=== PATIENT | male | born 1970 | race Caucasian/White ===

== ENCOUNTER 2022-03-22 08:00 | Outpatient (RCR) | payer BC, SELFPAY | END 2023-02-15 11:18 | disposition home or self-care (01) | PROVIDERS: PCP Family Medicine; Visit Provider Family Medicine | DX: I89.0 Lymphedema, not elsewhere classified (principal); Z51.89 Encounter for other specified aftercare | CPT/HCPCS: 97140 ==

== ENCOUNTER 2022-11-11 14:02 | Outpatient (CLI) | payer BC, SELFPAY | END 2022-11-11 14:03 | disposition home or self-care (01) | PROVIDERS: PCP Family Medicine; Visit Provider Family Medicine | DX: R07.89 Other chest pain (principal) | CPT/HCPCS: 80048; 80061 ==

== ENCOUNTER 2023-03-17 09:50 | Outpatient (CLI) | payer BC, SELFPAY | END 2023-03-17 09:51 | disposition home or self-care (01) | PROVIDERS: PCP Family Medicine; Visit Provider Family Medicine | DX: E78.2 Mixed hyperlipidemia (principal); I10 Essential (primary) hypertension | CPT/HCPCS: 80053 ==

== ENCOUNTER 2023-12-26 09:10 | Outpatient (CLI) | payer BC, SELFPAY | END 2023-12-26 09:11 | disposition home or self-care (01) | PROVIDERS: PCP Family Medicine; Visit Provider Family Medicine | DX: E78.2 Mixed hyperlipidemia (principal); I10 Essential (primary) hypertension; Z12.5 Encounter for screening for malignant neoplasm of prostate | CPT/HCPCS: 80048; 80061; 84460; 85025; G0103 ==

== ENCOUNTER 2024-03-24 17:12 | Emergency (ER) | payer BC, SELFPAY ==
[2024-03-24 18:00] VITALS: BP 146/97; PULSE 73; RESP 16; TEMP 36.8; O2SAT 97; BMI 44.6
--- NOTE | 2024-03-24 18:35 | CRLHL7_ITS ---
For Patients: As a result of the Century Cures Act, medical imaging exams and procedure reports are released immediately into your electronic medical record. You may view this report before your referring provider. If you have questions, please contact your health care provider. INDICATION: Headache. COMPARISON: None. TECHNIQUE: CT of the head without IV contrast. Coronal and sagittal reconstructions. FINDINGS: No intracranial hemorrhage, mass effect, or evidence of acute infarct. No midline shift. No abnormal extra-axial fluid collections. Normal caliber ventricular system. Orbits and extraocular muscles are symmetric. The visualized paranasal sinuses and mastoid air cells are clear. Soft tissues are unremarkable. No acute fracture identified. IMPRESSION: No acute intracranial findings. Please note that all CT scans at this facility use dose modulation, iterative reconstruction, and/or weight-based dosing when appropriate to reduce radiation dose to as low as reasonably achievable. Dictated by Teagan Melara MD @ 03/24/2024 7:13:33 PM (Electronically Signed)
--- NOTE | 2024-03-24 18:40 | ED.GENADULT ---
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 He denies focal neurologic changes but he came home Monday and felt a little dizzy did not feel well. He felt better briefly but then today had similar symptoms he reports that feels like ?a spike sticking through his head from his frontal area to his parietal area, primarily on the left side. ?Patient denies fever, chills, chest pain, breathing problem. He has had a cardiac stent x2 and he has done well with that it has been followed up on. He is on clopidogrel atorvastatin metoprolol nitroglycerin as needed a statin. He denies having a headache history. He has not had allergies or sinus infections in the past. He does not feel feverish. He has been eating and drinking normally Related Data Home Medications ?Medication ?Instructions ?Recorded ?Confirmed isosorbide mononitrate 30 mg 30 mg PO DAILY 02/12/24 03/24/24 tablet,extended release 24 hr aspirin 81 mg tablet,delayed 81 mg PO QDAY 02/13/24 03/24/24 release (Adult Low Dose Aspirin) clopidogrel 75 mg tablet 75 mg PO DAILY 03/24/24 03/24/24 Previous Rx's ?Medication ?Instructions ?Recorded atorvastatin 40 mg tablet 80 mg (2 x 40 mg) PO QDAY #180 tabs 01/19/23 lisinopril 40 mg tablet 40 mg PO QDAY #90 tabs 04/24/23 furosemide 40 mg tablet 40 mg PO DAILY #90 tabs 10/20/23 metoprolol succinate 50 mg 50 mg PO QDAY #90 tabs 12/27/23 tablet,extended release 24 hr (Toprol XL) nitroglycerin 0.4 mg sublingual 0.4 mg sublingual Q5M PRN chest 12/27/23 tablet pain #20 tabs Allergies Allergy/AdvReac Type Severity Reaction Status Date / Time No Known Drug Allergies Allergy Verified 03/24/24 18:04 Review of Systems Status of ROS: Reports: 6 or more systems reviewed and unremarkable except as noted in History and below [facility] Medical History ASCVD (arteriosclerotic cardiovascular disease) ?I25.10 - Atherosclerotic heart disease of [place] coronary artery without angina pectoris (ICD-10) Mixed hyperlipidemia ?E78.2 - Mixed hyperlipidemia (ICD-10) Primary hypertension ?I10 - Essential (primary) hypertension (ICD-10) Osteoarthritis of right shoulder ?M19.011 - Primary osteoarthritis, right shoulder (ICD-10) History of exertional chest pain ?Z87.898 - Personal history of other specified conditions (ICD-10) Edema of both lower extremities ?R60.0 - Localized edema (ICD-10) Surgical History History of coronary angioplasty with insertion of stent (12/06/22) ?Z95.5 - Presence of coronary angioplasty implant and graft (ICD-10) History of vasectomy (06/2003) ?Z98.52 - Vasectomy status (ICD-10) History of appendectomy (09/2014) ?Z90.49 - Acquired absence of other specified parts of digestive tract (ICD-10) Family History Father Heart disease Myocardial infarction Uncle Heart disease Maternal Grandmother Stroke Diabetes Social History Narrative: , 7 children, truck driver flatbed, Non smoker, social EtOH Smoking Status: Never smoker Little interest or pleasure in doing things: not at all Feeling down, depressed, or hopeless: not at all Exam Narrative: Exam Narrative: Objective: Patient's vital signs show slightly elevated blood pressure, he is alert orient x3 very pleasant, noncyanotic Head no facial asymmetry, no scleral icterus, mouth is clear, patient smiles normally Neck is supple Chest is clear Heart rhythm regular with out murmur Abdomen nontender no masses no peritonitis Extremities trace edema of the ankles and full range of motion of the arms and legs, no weakness noted no paresthesias or dysesthesia. Const: Vital Signs, click to edit/add: Vital Signs - 24 hr 03/24/24 18:00 Temperature 98.2 F Pulse Rate [Pulse Oximeter] 73 Respiratory Rate 16 Blood Pressure [Ri ght Upper Arm] 146/97 H Pulse Oximetry 97 Oxygen Delivery Me thod Room Air Course Vital Signs Vital signs: Initial Vital Signs Temperature 98.2 F 03/24/24 18:00 Temperature Source Temporal Artery Scan 03/24/24 18:00 Pulse Rate 73 03/24/24 18:00 Respiratory Rate 16 03/24/24 18:00 Blood Pressure 146/97 H 03/24/24 18:00 Blood Pressure Mean 113 H 03/24/24 18:00 Blood Pressure Position Sitting 03/24/24 18:00 Pulse Oximetry 97 03/24/24 18:00 Oxygen Delivery Method Room Air 03/24/24 18:00 Vital Signs Temperature 98.2 F 03/24/24 18:00 Pulse Rate 73 03/24/24 18:00 Respiratory Rate 16 03/24/24 18:00 Blood Pressure 146/97 H 03/24/24 18:00 Pulse Oximetry 97 03/24/24 18:00 Oxygen Delivery Method Room Air 03/24/24 18:00 Temperature 98.2 F 03/24/24 18:00 Pulse Rate 73 03/24/24 18:00 Respiratory Rate 16 03/24/24 18:00 Blood Pressure 146/97 H 03/24/24 18:00 Pulse Oximetry 97 03/24/24 18:00 Oxygen Delivery Method Room Air 03/24/24 18:00 Medications Administered Medications: Discontinued Medications Generic Name Dose Route Start Last Admin Trade Name Freq PRN Reason Stop Dose Admin Diphenhydramine HCl 25 mg 03/24/24 18:34 03/24/24 19:39 Diphenhydramine 50 Mg/Ml Inj IVP 03/24/24 18:35 25 mg ONCE ONE Administration Sodium Chloride 1,000 mls @ 6,000 mls/hr 03/24/24 18:45 03/24/24 19:38 0.9 % Sodium Chloride 1000 Ml IV 03/24/24 18:54 6,000 mls/hr .Q10M TAMMY Administration Metoclopramide HCl 10 mg/ 102 mls @ 306 mls/hr 03/24/24 18:34 03/24/24 19:39 Sodium Chloride IV 03/24/24 18:35 306 mls/hr ONCE ONE Administration Ketorolac Tromethamine 15 mg 03/24/24 18:36 03/24/24 19:38 Ketorolac 15 Mg/Ml Inj IVP 03/24/24 18:37 15 mg ONCE ONE Administration Medical Decision Making MDM Narrative Medical decision making narrative: 54-year-old white male with a occasional intermittent headache type process from his left frontal area through his left parietal area. No history of migraines. No history of significant neurologic compromise. 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 To see if it will help with this discomfort. I think also be reasonable to get a head CT scan to exclude sinusitis or tumor or other intracranial pathology. Will check electrolytes and labs. Disposition pending findings. Will write him a note that he can be off work for the next 3 days until follow-up with primary care. Addendum 8:00 p.m.: Patient's head CT was read by radiology is negative no evidence of sinusitis intracranial pathology. He feels better, I do think he should be off work for few days, recheck with primary care at that time. His CBC looks unremarkable other his platelets are little bit low. His electrolyte profile is pending at this point but I think he can go home at this time. No redness he should be off work for period of time and then recheck with primary care doctor as described above. Consideration would be for MRI scanning or further intervention should he continue to have symptoms. Lab Data Labs: Lab Results 03/24/24 Range/Units 19:37 WBC 8.19 (4.50-11.00) K/uL RBC 4.77 (4.30-5.90) m/uL Hgb 14.1 (13.5-17.5) gm/dL Hct 43.4 (37.0-53.0) % MCV 91 (80-100) fL MCH 30 (26-34) pg MCHC 33 (32-36) gm/dL RDW Coeff of Gwen 12.9 (11.5-15.5) % Plt Count 126 L (140-440) K/uL Neut % (Auto) 65.6 (42.0-72.0) % Lymph % (Auto) 23.2 (20-44) % Morrill % (Auto) 8.9 (0.0-11.0) % Eos % (Auto) 2.0 (0.0-7.0) % Baso % (Auto) 0.2 (0.0-3.0) % Neut # (Auto) 5.37 (1.7-7.0) K/uL Lymph # (Auto) 1.90 (0.90-2.90) K/uL Morrill # (Auto) 0.70 (0.00-0.90) K/UL Eos # (Auto) 0.16 (0.00-0.50) K/uL Baso # (Auto) 0.02 (0.00-0.30) K/uL Abs Immat Gran (auto) 0.01 (0.00-0.30) K/uL Imm/Tot Granulo (auto) 0.1 % Discharge Plan Discharge Clinical Impression: Headache Patient Disposition: Home w/ Parent or Adult Condition: Stable Additional Instructions: Recommend off work for 3 days, recheck with her primary care doctor at that time. If she continue to have symptoms consider an MRI scan of your head. Drink adequate fluids. Continue home medications. Activity Level: Light activity Discharge Diet: Regular Prescriptions: No Action metoprolol succinate [Toprol XL] 50 mg tablet extended release 24 hr 50 mg PO QDAY Qty: 90 1RF nitroglycerin 0.4 mg tablet, sublingual 0.4 mg sublingual Q5M PRN (Reason: chest pain) Qty: 20 0RF Rx Instructions: do not exceed 3 doses per episode isosorbide mononitrate 30 mg tablet extended release 24 hr 30 mg PO DAILY aspirin [Adult Low Dose Aspirin] 81 mg tablet,delayed release (DR/EC) 81 mg PO QDAY clopidogrel 75 mg tablet 75 mg PO DAILY atorvastatin 40 mg tablet 80 mg PO QDAY Qty: 180 3RF lisinopril 40 mg tablet 40 mg PO QDAY Qty: 90 3RF Patient Comments: TAKE 1 TABLET BY MOUTH DAILY furosemide 40 mg tablet 40 mg PO DAILY Qty: 90 0RF Follow Up/Referrals: Ramu Baca MD [Primary Care Provider] - Stand Alone Forms: [employer] Info Instructions
[2024-03-24] MEDS: KETOROLAC 15 MG/ML inj IVP (19:38)
[2024-03-24] MEDS: 0.9 % SODIUM CHLORIDE 1000 ml 1,000 ML 6000 ML IV (19:38)
[2024-03-24] MEDS: diphenhydrAMINE 50 MG/ML inj 25 MG IVP (19:39)
[2024-03-24] MEDS: METOCLOPRAMIDE HCL 10 MG in 0.9 % SODIUM CHLORIDE 100 ml 100 ML 306 MG IV (19:39)
[2024-03-24 19:41] LABS: Basophils Absolute Auto 0.02 K/uL (0.00-0.30); Basophils Percent Auto 0.2 % (0.0-3.0); Eosinophils Absolute Auto 0.16 K/uL (0.00-0.50); Hematocrit 43.4 % (37.0-53.0); Hemoglobin* 14.1 gm/dL (13.5-17.5); Immature Granulocytes Abs Auto 0.01 K/uL (0.00-0.30); Immature Granulocytes Pct Auto 0.1 %; Lymphocytes Percent Auto 23.2 % (20-44); Mean Corpuscular HGB Conc 33 gm/dL (32-36); Mean Corpuscular Hemoglobin 30 pg (26-34); Mean Corpuscular Volume 91 fL (80-100); Monocytes Percent Auto 8.9 % (0.0-11.0); Neutrophils Absolute Auto 5.37 K/uL (1.7-7.0); Neutrophils Percent Auto 65.6 % (42.0-72.0); Platelet Count* 126 K/uL (140-440); RDW Coefficient of Variation % 12.9 % (11.5-15.5); Red Blood Count 4.77 m/uL (4.30-5.90); White Blood Count* 8.19 K/uL (4.50-11.00)
[2024-03-24 19:48] LABS: Slide Review Reflex No
[2024-03-24 20:00] VITALS: BP 157/100; PULSE 75; RESP 16; O2SAT 98
--- NOTE | 2024-03-24 20:15 | PC.NURSE ---
pt states his headache has improved, rates pain 5/10.Pt states when he got up to go to the bathroom headache and lightheadedness increased.
== END 2024-03-24 20:32 | disposition home or self-care (01) ==
PROVIDERS: Emergency Provider Family Medicine; PCP Family Medicine
DX: R51.9 Headache, unspecified (principal)
CPT/HCPCS: 36415; 70450; 80048; 85025; 86140; 96374; 96375; 99284; J1200; J1885; J2765; J7030

== ENCOUNTER 2024-03-28 13:19 | Emergency (ER) | payer BC, SELFPAY ==
[2024-03-28 13:28] VITALS: BP 132/85; PULSE 93; RESP 16; TEMP 36.6; O2SAT 98
[2024-03-28 15:36] VITALS: BP 149/84; PULSE 69; RESP 16; TEMP 36.4; O2SAT 95
--- OUTSIDE RECORDS SUMMARY | 2024-03-28 16:30 | XMS_ITS | Clinical Summary ---
Author Organization [employer] [facility] Address [place], [place] [address] Care Team Providers Care Tree Planter Name Role Phone Ramu Baca MD Primary Care Provider + Allergies No known active allergies Medications Medication Sig Dispensed Refills Start Date End Date Status furosemide (LASIX) 40 mg tablet Take 40 mg by mouth once daily. 06/15/2022 Active lisinopriL (PRINIVIL; ZESTRIL) 40 mg tablet Take 40 mg by mouth once daily. 09/28/2022 Active aspirin (ECOTRIN) 81 mg enteric coated tablet Take 1 Tablet (81 mg) by mouth once daily. 0 12/05/2022 Active nitroglycerin (NITROSTAT) 0.[address] 0.4 mg under the tongue every 5 minutes if needed for Chest Pain. Active atorvastatin (LIPITOR) 80 mg tabletIndications:Matthew cardial infarction involving left anterior descending (LAD) coronary artery, unspecified TN type (HC) Take 1 Tablet (80 mg) by mouth once daily. 90 Tablet 3 12/07/2022 Active metoprolol succinate (TOPROL XL) 50 mg sustained-release tablet Take 50 mg by mouth once daily. 12/27/2023 Active isosorbide mononitrate (IMDUR) 30 mg extended release tablet 24 HourIndications:Unsta ble angina pectoris (HC) Take 1 Tablet (30 mg) by mouth once daily. 90 Tablet 3 02/06/2024 Active Active Problems Problem Noted Date Diagnosed Date TN (myocardial infarction) 12/06/2022 Chest pain 12/05/2022 GERD (gastroesophageal reflux disease) HTN (hypertension) 12/05/2022 Encounters Date Type Department Care Team Description 02/06/2024 7:43 AM CDT - 02/06/2024 4:20 PM CDT Hospital Encounter [facility] [address] [place] [address] Hasmukh Zamora MD Unstable angina pectoris (HC) (Primary Dx); Cardiovascular symptoms Discharge Disposition: Home Self Care 02/06/2024 Travel 01/29/2024 [facility] [place] [address] [place] [address] Vidhya Lee MD instructions needed 01/26/2024 Telephone [facility] [address] [place] [phone] Vidhya Lee MD 01/25/2024 2:30 PM CDT [facility] [address] [place] [address] Vidhya Lee MD from Last 3 Months Immunizations Name Administration Dates Next Due Influenza Virus, Unspecified 07/19/2018(Deferred : Patient Refused) Influenza, IIV4 07/19/2018,05/23/2016 Td (Age >=7 Years) 10/01/2013(Deferred: Patient Refused),09/25/2002 Td, Preservative Free (age > = 7 Years) 10/01/2013 Tdap 10/04/2013 Social History Tobacco Use Types Packs/Day Years Used Date Smoking Tobacco: Never Smokeless Tobacco: Never Tobacco Cessation:Counseling Given: Not Answered Alcohol Use Standard Drinks/Week Comments Not Currently 0 (1 standard drink = 0.6 oz pur e alcohol) Social Connections Answer Date Recorded Frequency of Communication with Friends and Fami ly Not on file 12/05/2022 Sex and Gender Information Value Date Recorded Sex Assigned at Not on file Gender Identity Not on file Sexual Orientation Not on file Obstetrics History Last Filed Vital Signs Vital Sign Reading Time Taken Comments Blood Pressure 131/83 02/06/2024 4:04 PM CDT Pulse 67 02/06/2024 4:04 PM CDT Temperature 36.8 ??C (98.2 ??F) 02/06/2024 4:04 PM CD T Respiratory Rate 16 02/06/2024 4:04 PM CDT Oxygen Saturation 97% 02/06/2024 4:04 PM CDT Inhaled Oxygen Concentration - - Weight 147.1 kg (324 lb 4.8 oz) 02/06/2024 8:14 AM CDT Height 180.3 cm (5' 11) 02/06/2024 8:14 AM CDT Body Mass Index 45.23 02/06/2024 8:14 AM CDT Plan of Treatment Health Maintenance Due Date Last Done Comments Depression screening for age 12+ 1983 HIV for age 15-65 1986 Hepatitis C screening for ag e 18-79 1989 Colonoscopy through age 75 02/12/2016 Zoster (shingles) series for age 50+ (1 of 2) 2021 COVID-19 vaccine series ( - 2022- season) 2023 Tetanus booster 10/05/2023 10/04/2013, 10/01/2013, 09/25/2002 BMI (ht and wt on same day) for age 18+ 12/06/2023 12/05/2022 Influenza for age 50-64 03/31/2024 07/19/20 18, 05/23/2016 Lipids for age 45-75 12/07/2027 12/06/2022 Tdap Completed 10/04/2013 Pneumococcal series for age 6-64 Aged Out No longer eligible b ased on patient's age to complete this topic Procedures Procedure Name Priority Date/Time Associated Diagnosis Comments HCHG ACTIVATED CLOTTING TM CV Timed 02/06/2024 11:50 AM CDT CVL CORONARY ANGIOGRAM POSS PCI Routine 02/06/2024 11:25 AM CDT Cardiovascular symptoms EKG 12 LEAD BASSEM 02/06/2024 8:19 AM CDT CBC W PLT NO DIFF BASSEM 02/06/2024 8:1 6 AM CDT BASIC METABOLIC PANEL BASSEM 02/06/2024 8:16 AM CDT SCAN-OPERATIVE/PROC EDURE REPORT 02/06/2024 12:00 AM CDT LIPID PANEL Early AM 12/06/2022 7:49 AM CDT from Last 3 Months or Most Recently Relevant to Health Maintenance Results * (ABNORMAL) ACTIVATED CLOTTING TIME [id number] ACT (02/06/2024 11:50 AM CDT) ACTIVATED CLOTTING TIME, POCT 224(H) 74 - 125 sec 02/07/2024 7:27 PM CDT [facility] Blood BLOOD SPECIMEN / Unknown 02/06/2024 11:50 AM CDT 02/07/2024 7:27 PM CDT Hasmukh Zamora MD [facility] [address] [place] [address], * CVL CORONARY ANGIOGRAM POSS PCI (02/06/2024 11:25 AM CDT) Anatomical Region Laterality Modality X-Ray Angiograph y, X-Ray Angiography 02/06/2024 11:2 5 AM CDT Narrative Transcriptions Hasmukh Zamora MD - 02/06/2024 12:06 PM CDT [facility] Cardiac Catheterization Report Name: DUDLEY WILL Event Date: 02/06/2024 11:25 [employer] ID #: [id number] Patient Class: Outpatient Diagnostic Physician: Rodolfo ZAMORA [facility] Referring Physician: Ramu Baca Date: 1970 Gender: Male Age: 53 Summary/Conclusions PRESENTATION / INDICATIONS * [place] - Highest CCS Class w/in past 2 wks - Class II VASCULAR ACCESS * Using ultrasound guidance and a percutaneous technique, the right radialartery was accessed. Ultrasound was used to confirm vessel patency,localizing needle into the lumen of the vessel. An image was saved for themedical record. DIAGNOSTIC SUMMARY ? The LMCA is free of significant disease. ? 50% stenosis in the Proximal LAD and patent stents distally ? 60% stenosis in the 1st Diagonal ? The Circumflex is free of significant disease. ? The RCA is free of significant disease. INTERVENTION ? Pressure Wire to Proximal LAD, iFR= 0.96 (revascularization notindicated) RECOMMENDATIONS & PLAN * Medical Rx - Only mild CAD present Consent & [place] Protocol The risks, benefits, and alternatives of the procedure were discussed withthe patient and written informed consent was obtained. [place] protocol was followed. TIME OUT conducted just prior tostarting procedure confirmed patient identity, site/side, procedure,patient position, and availability of correct equipment and implants (ifapplicable). Staff Name Title Rodolfo ZAMORA Diagnostic Marketing Ambassador Ethel Negron Fellow Caity Wilkerson RN Nurse Ellen Fuller RN Nurse Ramona Gruber CVT Scrub Urbano, Toya CVT Monitor Procedures ? Ultrasound Guided Vascular Access ? Coronary Angiogram ? Coronary Fractional Flow Measurement Diagnostic Findings * Left Main Coronary Artery ? The LMCA is free of significant disease. * Left Anterior Descending ? 50% stenosis in the Proximal LAD. ? 60% stenosis in the 1st Diagonal. * Circumflex ? The Circumflex is free of significant disease. * Right Coronary Artery ? The RCA is free of significant disease. Lesion Information Lesion # Vessel Segment Lesion Length Lesion Details 1 Proximal LAD 1st Diagonal Hemodynamics State: Baseline Pressures (mmHg) Site Systolic Diastolic End Diastolic A Wave V Wave Mean AO 113 83 99 Interventional Results * Left Anterior Descending ? Intervention to the Proximal LAD 50% lesion using a Pressure Wire. Interventional Devices Lesion # Vessel Segment Type Name Max Pressure 1 Proximal LAD Pressure Wire Wire Pressure Guide OMNIwire [id number] Procedure Details Estimated Blood Loss: < 30 ml Specimen Collected: None Level of Sedation Achieved: Moderate Procedure Start: 11:25 Procedure End: 11:55 Procedure Time: 30 min Fluoroscopy Time: 8.4 min Cumulative Air Kerma: 621 mGy DAP: 4190 uGy/M2 Contrast: Omnipaque (low-osmolar), 65 ml Physiologic Data Weight: 147.1 kg BSA: 2.59 m2 Vascular Access Time Access Sheath Size 11:27 Right Radial Artery, sheath inserted Complications ? No Complications Medications Ordered and Administered Start Time Stop Time Medication Dose Units Route Ordered By Given By 11:21 O2 2 l per min Nasal cannula Rodolfo Zamora RachelleRN 11:23 Fentanyl 50 mcg IV Rodolfo Zamora Rachelle RN 11:23 Versed 1 mg IV Rodolfo Zamora Rachelle RN 11:25 1% Lidocaine 2.5 ml Subcut Rodolfo Zamora Jaskanwal 11:29 Versed 0.5 mg IV Rodolfo Zamora Rachelle RN 11:29 Fentanyl 25 mcg IV Rodolfo Zamora Rachelle RN 11:34 Heparin 56562 units IV Rodolfo Zamora Rachelle RN I personally monitored the patient?s conscious sedation during theprocedure. Conscious sedation starts with the first sedation medication dose ofFentanyl or Versed and ends when the procedure is completed, the patientis stable for recovery status, and the physician or other qualified healthcare professional providing the sedation ends personal [id number] time with the patient. The medications listed above were verbally ordered by me and read back tome as documented above. Refer to the procedure log report for additional case details. electronically signed on 02/06/2024 12:06:14 PM with status of Final Gigi Zamora MD [facility] [address] [place] [address] (p) [phone](f) Provider Referring CV IMAGING * 12 Lead EKG (02/06/2024 8:19 AM CDT) Interpretation Normal sinus rhythm Normal ECG When compared with ECG of 06-Dec-2022 16:13, No significant change was found BEYOND NOW Ventricular Rate 69 BPM BEYOND NOW Atrial Rate 69 BPM BEYOND NOW P-R Interval 150 ms BEYOND NOW QRS Duration 106 ms BEYOND NOW QT 390 ms BEYOND NOW QTc 417 ms BEYOND NOW P Delanson 8 degrees BEYOND NOW R [place] 7 degrees BEYOND NOW T [place] 23 degrees BEYOND NOW 02/06/2024 8:19 AM CDT 02/07/2024 6:32 PM CDT Narrative BEYOND NOW - 02/07/2024 6:32 PM CDT Test Indication: PRE OP Hasmukh Zamora MD EKG ORD BEYOND NOW [place], [place] * CBC with Platelets no Differential (02/06/2024 8:16 AM CDT) WHITE BLOOD COUNT 6.6 4.5 - 11.0 thou/cu mm 02/06/2024 8:31 AM CDT [facility] RED BLOOD COUNT 4.89 4.30 - 5.90 mil/cu mm 02/06/2024 8:31 AM CDT [facility] HEMOGLOBIN 14.6 13.5 - 17.5 g/dL 02/06/2024 8:31 AM CDT [facility] HEMATOCRIT 44.4 37.0 - 53.0 % 02/06/2024 8:31 AM CDT [facility] MCV 91 80 - 100 fL 02/06/2024 8:31 AM CDT [facility] MCH 29.9 26.0 - 34.0 pg 02/06/2024 8:31 AM CDT [facility] MCHC 32.9 32.0 - 36.0 g/dL 02/06/2024 8:31 AM CDT [facility] RDW 12.7 11.5 - 15.5 % 02/06/2024 8:31 AM CDT [facility] PLATELET COUNT 149 140 - 440 thou/cu mm 02/06/2024 8:31 AM CDT [facility] MPV 10.1 6.5 - 11.0 fL 02/06/2024 8:31 AM CDT [facility] NRBC 0.0 % 02/06/2024 8:31 AM CDT [facility] ABS NRBC 0.0 thou /cu mm 02/06/2024 8:31 AM CDT [facility] Blood BLOOD SPECIMEN / Unknown Non-Lab Venipuncture / Unknown 02/06/2024 8:16 AM CDT 02/06/2024 8:23 AM CDT Narrative [facility] - 02/06/2024 8:31 AM CDT If not done within past 14 days. ??Nurse to release order. Hasmukh Zamora MD HEMATOLOGY [facility] [address] [place] [address], * Basic Metabolic Panel (02/06/2024 8:16 AM CDT) SODIUM 138 136 - 145 mmol/L 02/06/2024 9:11 AM CDT [facility] POTASSIUM 4.3 3.5 - 5.1 mmol/L 02/06/2024 9:11 AM CDT [facility] CHLORIDE 104 98 - 107 mmol/L 02/06/2024 9:11 AM CDT [facility] CO2,TOTAL 28 22 - 29 mmol/L 02/06/2024 9:11 AM CDT [facility] ANION GAP 6 5 - 18 02/06/2024 9:11 AM CDT [facility] GLUCOSE 97 70 - 99 mg/dL 02/06/2024 9:11 AM CDT [facility] CALCIUM 8.9 8.6 - 10.0 mg/dL 02/06/2024 9:11 AM CDT [facility] BUN 13 6 - 20 mg/dL 02/06/2024 9:11 AM T [facility] CREATININE 0.95 0.70 - 1.20 mg/dL 02/06/2024 9:11 AM T [facility] BUN/CREAT RATIO 14 10 - 20 9:11 AM T [facility] eGFR >90 >90 mL/min/1.7 3m2 02/06/2024 9:11 AM CDT [facility] Comment:As of 2021, eG FR is calculated by the CKD-EPI creatinine equation without race adjustment. ??eGFR can be influenced by muscle mass, exercise, and diet. ??The reported eGFR is an estimation only and is only applicable if the renal function is stable. Blood BLOOD SPECIMEN / Unknown Non-Lab Venipuncture / Unknown 02/06/2024 8:16 AM CDT 02/06/2024 8:23 AM CDT Hasmukh Zamora MD [facility] [address] [place] [address], * SCAN-OPERATIVE/PROCEDURE REPORT (02/06/2024 12:00 AM CDT) Narrative 02/06/2024 12:00 AM CDT Ordered by an unspecified provider. Other Clinical Staff OTHER * (ABNORMAL) Lipid Panel AM (12/06/2022 7:49 AM CDT) CHOLESTEROL,TOTAL 133 mg/dL 023 9:02 AM T [facility] Comment: Cholesterol, Total Reference Ranges Desirable <200 mg/dL Borderline 200-239 mg/dL High >=240 mg/dL TRIGLYCERIDES 99 <150 mg/dL 12/06/2022 9:02 AM CDT [facility] HDL CHOLESTEROL 31(L) >40 mg/dL 9:02 AM CDT [facility] NON-HDL CHOLESTEROL 102 <145 mg/dl 12/06/2022 9:02 AM CDT [facility] CHOL/HDL RATIO 4.29 <4.50 12/06/2022 9:02 AM CDT [facility] LDL CHOLESTEROL 82 <=130 mg/dL 12/06/2022 9:02 AM CDT [facility] VLDL CHOLESTEROL 20 <=30 mg/dL 12/06/2022 9:02 AM CDT [facility] PROVIDER ORDERED STATUS RANDOM 12/06/2022 9:02 AM T [facility] Blood BLOOD SPECIMEN / Unknown Butterfly / Unknown 12/06/2022 7:49 AM CDT 12/06/2022 8:09 AM CDT Alida Johnson MD CHEMISTRY [facility] [address] [place] [address] [address] [place] [address], from Last 3 Months or Most Recently Relevant to Health Maintenance Advance Directives * Full Code (Latest Code Status on File) Date Activated Date Inactivated Comments 02/06/2024 12:00 PM 02/06/2024 6:33 PM Question Answer Comments Code Status Discussion: Unable to Assess Preferences, Provider to review later * Full Code Date Activated Date Inactivated Comments 12/05/2022 4:10 PM 12/07/2022 7:16 PM Question Answer Comments Code Status Discussion: Reviewed Preferences Care Teams Tree Planter Relationship Specialty Start Date End Date Ramu Baca MD [address] [place] [address] PCP - General Family Practice 12/05/22
--- NOTE | 2024-03-28 16:47 | W.ED.CHARTNO ---
ED Chart Note Chart Note Details Date: 03/28/24 Details: Left waiting room without being seen by provider
== END 2024-03-28 16:31 | disposition left against medical advice (07) ==
PROVIDERS: Emergency Provider Student in an Organized Health Care Education/Training Program; PCP Family Medicine
DX: Z53.21 Procedure and treatment not carried out due to patient leaving prior to being seen by health care provider (principal)

== ENCOUNTER 2024-04-05 07:04 | Outpatient (CLI) | payer BC, SELFPAY ==
--- OUTSIDE RECORDS SUMMARY | 2024-04-05 07:06 | XMS_ITS | Clinical Summary ---
Author Organization [employer] Address [place], [place] [address] Care Team Providers Care Wind Turbine Machinist Name Role Phone Ramu Baca MD Primary [...] left anterior descending (LAD) coronary artery, unspecified DC type (HC) Take 1 Tablet (80 mg) [...] Active Problems Problem Noted Date Diagnosed Date DC (myocardial infarction) 12/06/2022 Chest pain 12/05/2022 GERD (gastroesophageal reflux disease) HTN (hypertension) 12/05/2022 Encounters Date Type Department Care Team Description 02/06/2024 7:43 AM CDT - 02/06/2024 4:20 PM CDT Hospital Encounter [facility] [address] [place] [address] Hasmukh Zamora MD Unstable angina pectoris (HC) (Primary Dx); Cardiovascular symptoms Discharge Disposition: Home Self Care 02/06/2024 Travel 01/29/2024 [facility] [address] [place] [address] Vidhya Lee MD instructions needed 01/26/2024 Telephone [facility] [address] [place] [phone] Vidhya Lee MD 01/25/2024 2:30 PM CDT Office Visit [facility] [address] [place] [address] Vidhya Lee MD from Last 3 Months [...] for age 50+ (1 of 2) 2021 Tetanus booster 10/05/2023 10/04/2013, 10/01/2013, 09/25/2002 BMI (ht and wt on same day) for age 18+ 12/06/2023 12/05/2022 COVID-19 vaccine series ( season) 2024 Influenza for age 50-64 03/31/2024 07/19/20 18, [...] Maintenance Results * (ABNORMAL) ACTIVATED CLOTTING TIME [id number] ACT (02/06/2024 11:50 AM CDT) ACTIVATED CLOTTING TIME, POCT 224(H) 74 - 125 sec 02/07/2024 7:27 PM CDT [facility] Blood BLOOD SPECIMEN / Unknown 02/06/2024 11:50 AM CDT 02/07/2024 7:27 PM CDT Hasmukh Zamora MD [facility] [address] [place] [address], * CVL CORONARY ANGIOGRAM POSS PCI (02/06/2024 11:25 AM CDT) Anatomical Region Laterality Modality X-Ray Angiograph y, X-Ray Angiography 02/06/2024 11:2 5 AM CDT Narrative Transcriptions Hasmukh Zamora MD - 02/06/2024 12:06 PM CDT [facility] Cardiac Catheterization Report Name: DUDLEY WILL Event Date: 02/06/2024 11:25 [employer] ID #: [id number] Patient Class: Outpatient Diagnostic Physician: Rodolfo ZAMORA [facility] Referring Physician: Ramu Baca Date: 1970 Gender: [...] - Only mild CAD present Consent & [place] Protocol The risks, benefits, and alternatives of the procedure were discussed withthe patient and written informed consent was obtained. [place] protocol was followed. TIME OUT conducted just prior tostarting procedure confirmed patient identity, site/side, procedure,patient position, and availability of correct equipment and implants (ifapplicable). Staff Name Title Rodolfo ZAMORA Diagnostic Plant Operations Manager Ethel Negron Fellow Caity Wilkerson RN Nurse [...] LAD Pressure Wire Wire Pressure Guide OMNIwire [id number] Procedure Details Estimated Blood Loss: < 30 [...] IV Rodolfo Zamora Rachelle RN 11:34 Heparin 89761 units IV Rodolfo Zamora Rachelle RN I personally monitored the patient?s conscious sedation during theprocedure. Conscious sedation starts with the first sedation medication dose ofFentanyl or Versed and ends when the procedure is completed, the patientis stable for recovery status, and the physician or other qualified healthcare professional providing the sedation ends personal [id number] time with the patient. The medications listed above were verbally ordered by me and read back tome as documented above. Refer to the procedure log report for additional case details. electronically signed on 02/06/2024 12:06:14 PM with status of Final Gigi Zamora MD [facility] [address] [place] [address] (p) [phone](f) Provider Referring CV IMAGING * 12 Lead [...] NOW QTc 417 ms BEYOND NOW P Isabella 8 degrees BEYOND NOW R Isabella 7 degrees BEYOND NOW T Isabella 23 degrees BEYOND NOW 02/06/2024 8:19 AM CDT 02/07/2024 6:32 PM CDT Narrative BEYOND NOW - 02/07/2024 6:32 PM CDT Test Indication: PRE OP Hasmukh Zamora MD EKG ORD BEYOND NOW [place], [place] * CBC with Platelets no Differential (02/06/2024 8:16 AM CDT) WHITE BLOOD COUNT 6.6 4.5 - 11.0 thou/cu mm 02/06/2024 8:31 AM CDT [facility] RED BLOOD COUNT 4.89 4.30 - 5.90 mil/cu mm 02/06/2024 8:31 AM CDT [facility] HEMOGLOBIN 14.6 13.5 - 17.5 g/dL 02/06/2024 8:31 AM CDT [facility] HEMATOCRIT 44.4 37.0 - 53.0 % 02/06/2024 8:31 AM CDT [facility] MCV 91 80 - 100 fL 02/06/2024 8:31 AM CDT [facility] MCH 29.9 26.0 - 34.0 pg 02/06/2024 8:31 AM CDT [facility] MCHC 32.9 32.0 - 36.0 g/dL 02/06/2024 8:31 AM CDT [facility] RDW 12.7 11.5 - 15.5 % 02/06/2024 8:31 AM CDT [facility] PLATELET COUNT 149 140 - 440 thou/cu mm 02/06/2024 8:31 AM CDT [facility] MPV 10.1 6.5 - 11.0 fL 02/06/2024 8:31 AM CDT [facility] NRBC 0.0 % 02/06/2024 8:31 AM CDT [facility] ABS NRBC 0.0 thou /cu mm 02/06/2024 8:31 AM CDT [facility] Blood BLOOD SPECIMEN / Unknown Non-Lab Venipuncture / Unknown 02/06/2024 8:16 AM CDT 02/06/2024 8:23 AM CDT Narrative [facility] - 02/06/2024 8:31 AM CDT If not done within past 14 days. ??Nurse to release order. Hasmukh Zamora MD HEMATOLOGY [facility] [address] [place] [address], * Basic Metabolic Panel (02/06/2024 8:16 AM CDT) SODIUM 138 136 - 145 mmol/L 02/06/2024 9:11 AM CDT [facility] POTASSIUM 4.3 3.5 - 5.1 mmol/L 02/06/2024 9:11 AM CDT [facility] CHLORIDE 104 98 - 107 mmol/L 02/06/2024 9:11 AM CDT [facility] CO2,TOTAL 28 22 - 29 mmol/L 02/06/2024 9:11 AM CDT [facility] ANION GAP 6 5 - 18 02/06/2024 9:11 AM CDT [facility] GLUCOSE 97 70 - 99 mg/dL 02/06/2024 9:11 AM CDT [facility] CALCIUM 8.9 8.6 - 10.0 mg/dL 02/06/2024 9:11 AM CDT [facility] BUN 13 6 - 20 mg/dL 02/06/2024 9:11 AM T [facility] CREATININE 0.95 0.70 - 1.20 mg/dL 02/06/2024 9:11 AM T [facility] BUN/CREAT RATIO 14 10 - 20 9:11 AM T [facility] eGFR >90 >90 mL/min/1.7 3m2 02/06/2024 9:11 AM CDT [facility] Comment:As of 2021, eG FR is [...] 8:23 AM CDT Hasmukh Zamora MD [facility] [address] [place] [address], * SCAN-OPERATIVE/PROCEDURE REPORT (02/06/2024 12:00 AM CDT) Narrative 02/06/2024 12:00 AM CDT Ordered by an unspecified provider. Other Clinical Staff OTHER * (ABNORMAL) Lipid Panel AM (12/06/2022 7:49 AM CDT) CHOLESTEROL,TOTAL 133 mg/dL 023 9:02 AM T [facility] Comment: Cholesterol, Total Reference Ranges Desirable <200 mg/dL Borderline 200-239 mg/dL High >=240 mg/dL TRIGLYCERIDES 99 <150 mg/dL 12/06/2022 9:02 AM CDT [facility] HDL CHOLESTEROL 31(L) >40 mg/dL 9:02 AM CDT [facility] NON-HDL CHOLESTEROL 102 <145 mg/dl 12/06/2022 9:02 AM CDT [facility] CHOL/HDL RATIO 4.29 <4.50 12/06/2022 9:02 AM CDT [facility] LDL CHOLESTEROL 82 <=130 mg/dL 12/06/2022 9:02 AM CDT [facility] VLDL CHOLESTEROL 20 <=30 mg/dL 12/06/2022 9:02 AM CDT [facility] PROVIDER ORDERED STATUS RANDOM 12/06/2022 9:02 AM T [facility] Blood BLOOD SPECIMEN / Unknown Butterfly / Unknown 12/06/2022 7:49 AM CDT 12/06/2022 8:09 AM CDT Alida Johnson MD CHEMISTRY [facility] [address] [place] [address] [address] [place] [address], from Last 3 Months or Most Recently [...] Code Status Discussion: Reviewed Preferences Care Teams Wind Turbine Machinist Relationship Specialty Start Date End Date Ramu Baca MD [address] [place] [address] PCP - General Family Practice 12/05/22
--- NOTE | 2024-04-05 07:15 | CRLHL7_ITS ---
For Patients: As a result of the Century Cures Act, medical imaging exams and procedure reports are released immediately into your electronic medical record. You may view this report before your referring provider. If you have questions, please contact your health care provider. INDICATION: Headaches. TECHNIQUE: Brain MRI without contrast. COMPARISON: Head CT from 03/24/2024. FINDINGS: No evidence of acute ischemia. No evidence of acute or chronic intracranial blood products. Scattered FLAIR hyperintensities within the supratentorial white matter, typical for chronic microvascular ischemic change. No mass effect or herniation. No hydrocephalus or extra-axial collections. The pituitary gland, parasellar structures and optic chiasm are normal. Posterior fossa is normal. All the major intracranial vascular structures demonstrate normal flow-related signal. The orbital contents are normal. No calvarial or skull base marrow replacing process. No obstructive sinus disease. No extracranial soft tissue findings. IMPRESSION: 1. No acute infarction or other acute intracranial pathology. 2. Minimal chronic microvascular ischemic changes scattered within the supratentorial white matter. Dictated by Fransisco Georges MD @ 04/05/2024 3:40:54 PM (Electronically Signed)
== END 2024-04-05 07:05 | disposition home or self-care (01) ==
LOC: MRI 07:04
PROVIDERS: PCP Family Medicine; Visit Provider Family Medicine
DX: R51.9 Headache, unspecified (principal); I67.82 Cerebral ischemia
CPT/HCPCS: 70551

== ENCOUNTER 2024-05-07 10:54 | Outpatient (CLI) | payer BC, SELFPAY ==
--- OUTSIDE RECORDS SUMMARY | 2024-05-07 11:45 | XMS_ITS | Clinical Summary ---
Author Organization [facility] Address [place], [place] [address] Care Team Providers Care Rag Sorter And Cutter Name Role Phone Ramu Baca MD Primary [...] left anterior descending (LAD) coronary artery, unspecified NH type (HC) Take 1 Tablet (80 mg) [...] Active Problems Problem Noted Date Diagnosed Date NH (myocardial infarction) 12/06/2022 Chest pain 12/05/2022 GERD (gastroesophageal reflux disease) HTN (hypertension) 12/05/2022 Encounters Date Type Department Care Team Description 02/06/2024 7:43 AM CDT - 02/06/2024 4:20 PM CDT Hospital Encounter [facility] [address] [place] [address] Hasmukh Zamora MD Unstable angina pectoris (HC) (Primary Dx); Cardiovascular symptoms Discharge Disposition: Home Self Care 02/06/2024 Travel from Last 3 Months Immunizations Name Administration [...] AM CDT Cardiovascular symptoms EKG 12 LEAD [facility] 02/06/2024 8:19 AM CDT CBC W PLT NO DIFF BASSEM 02/06/2024 8:1 6 AM CDT BASIC METABOLIC PANEL [facility] 02/06/2024 8:16 AM CDT SCAN-OPERATIVE/PROC EDURE REPORT 02/06/2024 12:00 AM CDT LIPID PANEL Early AM 12/06/2022 7:49 AM CDT from Last 3 Months or Most Recently Relevant to Health Maintenance Results * (ABNORMAL) ACTIVATED CLOTTING TIME [id number] ACT (02/06/2024 11:50 AM CDT) ACTIVATED CLOTTING TIME, POCT 224(H) 74 - 125 sec 02/07/2024 7:27 PM CDT [facility] Blood BLOOD SPECIMEN / Unknown 02/06/2024 11:50 AM CDT 02/07/2024 7:27 PM CDT Hasmukh Zamora MD HEMATOLOGY [facility] [address] [place] [address], * CVL CORONARY ANGIOGRAM POSS PCI (02/06/2024 11:25 AM CDT) Anatomical Region Laterality Modality X-Ray Angiograph y, X-Ray Angiography 02/06/2024 11:2 5 AM CDT Narrative Transcriptions Hasmukh Zamora MD - 02/06/2024 12:06 PM CDT [facility] Cardiac Catheterization Report Name: DUDLEY WILL Event Date: 02/06/2024 11:25 Excell[facility] ID #: [id number] Patient Class: Outpatient Diagnostic Physician: Rodolfo ZAMORA [facility] Referring Physician: Ramu Baca Date: 1970 Gender: [...] - Only mild CAD present Consent & [place] Protocol The risks, benefits, and alternatives of the procedure were discussed withthe patient and written informed consent was obtained. [place] protocol was followed. TIME OUT conducted just prior tostarting procedure confirmed patient identity, site/side, procedure,patient position, and availability of correct equipment and implants (ifapplicable). Staff Name Title Rodolfo ZAMORA Diagnostic Permit Review Assistant Ethel Negron Fellow Caity Wilkerson RN Nurse Ellen Fuller RN Nurse Ramona Gruber CVT Scrub Toya Clement CVT Monitor Procedures ? Ultrasound Guided Vascular [...] LAD Pressure Wire Wire Pressure Guide OMNIwire [id number] Procedure Details Estimated Blood Loss: < 30 [...] IV Rodolfo Zamora Rachelle RN 11:34 Heparin 69493 units IV Rodolfo Zamora Rachelle RN I personally monitored the patient?s conscious sedation during theprocedure. Conscious sedation starts with the first sedation medication dose ofFentanyl or Versed and ends when the procedure is completed, the patientis stable for recovery status, and the physician or other qualified healthcare professional providing the sedation ends personal [id number] time with the patient. The medications listed above were verbally ordered by me and read back tome as documented above. Refer to the procedure log report for additional case details. electronically signed on 02/06/2024 12:06:14 PM with status of Final Gigi Zamora MD [facility] [address] [place] [address] (p) [phone](f) Provider Referring CV IMAGING * 12 Lead EKG (02/06/2024 8:19 AM CDT) Pathologist [facility] Interpretation Normal sinus rhythm Normal ECG When compared with ECG of 06-Dec-2022 16:13, No significant change was found BEYOND NOW Ventricular Rate 69 BPM BEYOND NOW Atrial Rate 69 BPM BEYOND NOW P-R Interval 150 ms BEYOND NOW QRS Duration 106 ms BEYOND NOW QT 390 ms BEYOND NOW QTc 417 ms BEYOND NOW P [place] 8 degrees BEYOND NOW R [place] 7 degrees BEYOND NOW T [place] 23 degrees BEYOND NOW 02/06/2024 8:19 AM CDT 02/07/2024 6:32 PM CDT Narrative BEYOND NOW - 02/07/2024 6:32 PM CDT Test Indication: PRE OP Hasmukh Zamora MD EKG ORD BEYOND NOW [place], [place] * CBC with Platelets no Differential (02/06/2024 8:16 AM CDT) Pathologist [facility] WHITE BLOOD COUNT 6.6 4.5 - 11.0 thou/cu mm 02/06/2024 8:31 AM CDT [facility] RED BLOOD COUNT 4.89 4.30 - 5.90 mil/cu mm 02/06/2024 8:31 AM CDT [facility] HEMOGLOBIN 14.6 13.5 - 17.5 g/dL 02/06/2024 8:31 AM CDT [facility] HEMATOCRIT 44.4 37.0 - 53.0 % 02/06/2024 8:31 AM CDT [facility] MCV 91 80 - 100 fL 02/06/2024 8:31 AM CDT [facility] MCH 29.9 26.0 - 34.0 pg 02/06/2024 8:31 AM CDT [facility] MCHC 32.9 32.0 - 36.0 g/dL 02/06/2024 8:31 AM CDT [facility] RDW 12.7 11.5 - 15.5 % 02/06/2024 8:31 AM CDT [facility] PLATELET COUNT 149 140 - 440 thou/cu mm 02/06/2024 8:31 AM CDT [facility] MPV 10.1 6.5 - 11.0 fL 02/06/2024 8:31 AM CDT [facility] NRBC 0.0 % 02/06/2024 8:31 AM CDT [facility] ABS NRBC 0.0 thou /cu mm 02/06/2024 8:31 AM CDT [facility] Blood BLOOD SPECIMEN / Unknown Non-Lab Venipuncture / Unknown 02/06/2024 8:16 AM CDT 02/06/2024 8:[address] [facility] LAB[facility] - 02/06/2024 8:31 AM CDT If not done within past 14 days. ??Nurse to release order. Hasmukh Zamora MD HEMATOLOGY [facility] [address] [place] [address], * Basic Metabolic Panel (02/06/2024 8:16 AM CDT) SODIUM 138 136 - 145 mmol/L 02/06/2024 9:11 AM CDT [facility] POTASSIUM 4.3 3.5 - 5.1 mmol/L 02/06/2024 9:11 AM CDT [facility] CHLORIDE 104 98 - 107 mmol/L 02/06/2024 9:11 AM CDT [facility] CO2,TOTAL 28 22 - 29 mmol/L 02/06/2024 9:11 AM CDT [facility] ANION GAP 6 5 - 18 02/06/2024 9:11 AM CDT [facility] GLUCOSE 97 70 - 99 mg/dL 02/06/2024 9:11 AM CDT [facility] CALCIUM 8.9 8.6 - 10.0 mg/dL 02/06/2024 9:11 AM CDT [facility] BUN 13 6 - 20 mg/dL 02/06/2024 9:11 AM T [facility] CREATININE 0.95 0.70 - 1.20 mg/dL 02/06/2024 9:11 AM T [facility] BUN/CREAT RATIO 14 10 - 20 9:11 AM T [facility] eGFR >90 >90 mL/min/1.7 3m2 02/06/2024 9:11 AM T [facility] Comment:As of 2021, eG FR is [...] 8:23 AM CDT Hasmukh Zamora MD CHEMISTRY [facility] [address] [place] [address], * SCAN-OPERATIVE/PROCEDURE REPORT (02/06/2024 12:00 AM CDT) Narrative 02/06/2024 12:00 AM CDT Ordered by an unspecified provider. Other Clinical Staff OTHER * (ABNORMAL) Lipid Panel AM (12/06/2022 7:49 AM CDT) CHOLESTEROL,TOTAL 133 mg/dL 023 9:02 AM CDT [facility] Comment: Cholesterol, Total Reference Ranges Desirable <200 mg/dL Borderline 200-239 mg/dL High >=240 mg/dL TRIGLYCERIDES 99 <150 mg/dL 12/06/2022 9:02 AM CDT [facility] HDL CHOLESTEROL 31(L) >40 mg/dL 9:02 AM CDT [facility] NON-HDL CHOLESTEROL 102 <145 mg/dl 12/06/2022 9:02 AM CDT [facility] CHOL/HDL RATIO 4.29 <4.50 12/06/2022 9:02 AM CDT [facility] LDL CHOLESTEROL 82 <=130 mg/dL 12/06/2022 9:02 AM CDT [facility] VLDL CHOLESTEROL 20 <=30 mg/dL 12/06/2022 9:02 AM CDT [facility] PROVIDER ORDERED STATUS RANDOM 12/06/2022 9:02 AM CDT [facility] Blood BLOOD SPECIMEN / Unknown Butterfly / Unknown 12/06/2022 7:49 AM CDT 12/06/2022 8:09 AM CDT Alida Johnson MD CHEMISTRY [facility] [address] [place] [address], [place] from Last 3 Months or Most Recently [...] Code Status Discussion: Reviewed Preferences Care Teams Rag Sorter And Cutter Relationship Specialty Start Date End Date Ramu Baca MD [address] [place] [address] PCP - General Family Practice 12/05/22
== END 2024-05-07 10:55 | disposition home or self-care (01) ==
PROVIDERS: PCP Family Medicine; Visit Provider Family Medicine
DX: I10 Essential (primary) hypertension (principal); E78.2 Mixed hyperlipidemia; R60.0 Localized edema
CPT/HCPCS: 80048; 80061; 84460

== ENCOUNTER 2024-12-19 09:23 | Outpatient (CLI) | payer BC, SELFPAY | END 2024-12-19 09:24 | disposition home or self-care (01) | PROVIDERS: PCP Family Medicine; Visit Provider Family Medicine | DX: E78.2 Mixed hyperlipidemia (principal); I10 Essential (primary) hypertension | CPT/HCPCS: 80048; 80061; 84460 ==